=== PATIENT | male | born 1970 | race African-American/Black ===

== ENCOUNTER 2017-04-07 21:04 | Emergency (ER) | payer BC ==
[~2017-04-07] VITALS: Ht 170.2 cm; Wt 76.0 kg
[~2017-04-07 21:04] MED LIST: DULO20CA45 PO
[2017-04-07 22:19] VITALS: BP 118/75
== END 2017-04-07 22:20 | disposition home or self-care (01) ==
LOC: ED 21:49
DX: L03.90 Cellulitis, unspecified (principal); S50.862A Insect bite (nonvenomous) of left forearm, initial encounter; T63.461A Toxic effect of venom of wasps, accidental (unintentional), initial encounter; Y93.89 Activity, other specified; Y99.8 Other external cause status; Y92.89 Other specified places as the place of occurrence of the external cause
CPT/HCPCS: 93005; 99283; J7512

== ENCOUNTER 2017-05-03 18:16 | Emergency (ER) | payer BC ==
[~2017-05-03] VITALS: Ht 170.2 cm; Wt 81.7 kg
[2017-05-03 18:30] VITALS: BP 137/84
[2017-05-03] MEDS ORDERED: HYDROmorphone 1 MG/ML, 1ML IM STA (18:58)
[2017-05-03] MEDS ORDERED: HYDROcodone/APAP 10/325 MG TABLET PO ONE (19:00)
[2017-05-03] MEDS ORDERED: HYDROmorphone 1 MG/ML, 1ML ONE (19:10)
== END 2017-05-03 19:33 | disposition home or self-care (01) ==
LOC: ED 19:15
DX: K02.9 Dental caries, unspecified (principal); Z87.891 Personal history of nicotine dependence
CPT/HCPCS: 96372; 99283; J1170

== ENCOUNTER 2020-07-16 16:56 | Inpatient (IN) | payer BC, OTHER ==
[~2020-07-16] VITALS: Ht 170.2 cm; Wt 87.5 kg
--- NOTE | 2020-07-16 17:06 | NUR ---
PT BIB EMS FOR LUQ ABD PAIN THAT RAIDATES TO HIS BACK. PT STATES "IT JUST CAME ON ALL OF A SUDDEN, I DIDNT HEAR A POP OR ANYTHING. ORIGNALLY I THOUGHT IT WAS MY CHEST" PT RECEIVED [employer] AND [employer]. PT CONNECTED TO MONITORING EQUIPMENT. IS BEDISDE.
[2020-07-16] MEDS ORDERED: MORPHINE SULFATE 4 MG/ML, 1ML ONE ×2 (17:17→19:50)
[2020-07-16] MEDS ORDERED: ONDANSETRON 2MG/ML, 2ML ONE (17:17)
[2020-07-16] MEDS: MORPHINE SULFATE 4 MG/ML, 1ML IVPush PRN ×2 (17:20→19:53)
[2020-07-16] MEDS ORDERED: ONDANSETRON 2MG/ML, 2ML IVPush ONE (17:30)
--- NOTE | 2020-07-16 17:30 | NUR ---
TASK RN: PT MEDICATED PER EMAR FOR PAIN. IMMEDIATE IMPROVEMENT IN PAIN. PT RESTING COMFORTABLY, REQUIRING SUPPLEMENTAL O2 TO MAINTAIN SPO2 >90%. RR WNL.
[2020-07-16 17:33] LABS: BASOPHILS % (AUTO) 0 % (0-1); EOSINOPHILS % (AUTO) 0 % (1-7); LYMPHOCYTES % (AUTO) 12 % (22-44); MEAN CORPUSCULAR HGB CONC 33.7 g/dL (33.2-36.2); MEAN PLATELET VOLUME 7.9 fL (7.4-10.4); MONOCYTES % (AUTO) 7 % (2-9); NEUTROPHILS % (AUTO) 81 % (42-75); PLATELET COUNT 210 x10^3/uL (130-400); RED BLOOD COUNT 6.54 x10^6/uL (4.38-5.82); RED CELL DISTRIBUTION WIDTH 15.1 % (9.4-14.8)
[2020-07-16 17:35] LABS: MD NO
[2020-07-16 17:43] LABS: ALANINE AMINOTRANSFERASE 38 U/L (12-78); ANION GAP 6 mmol/L (5-15); CALCIUM 8.9 mg/dL (8.5-10.1); CHLORIDE 111 mmol/L (98-107); CREATININE 1.23 mg/dL (0.7-1.3)
[2020-07-16 17:47] LABS: ALKALINE PHOSPHATASE 87 U/L (45-117); BILIRUBIN,TOTAL 0.5 mg/dL (0.2-1.0); TOTAL PROTEIN 7.3 g/dL (6.4-8.2); TROPONIN I < 0.015 ng/mL (0.000-0.045)
[2020-07-16 17:54] LABS: MICROSCOPIC NOT IND
[2020-07-16] MEDS ORDERED: OMNIPAQUE 350 MG/ML, 100ML BOTTLE ONE (18:24)
--- NOTE | 2020-07-16 18:46 | NUR ---
BEDSIDE REPORT RECEIVED FROM [facility]
[2020-07-16] MEDS ORDERED: SODIUM CHLORIDE 0.9% 1,000ML IVBOLUS ONE (19:00)
[2020-07-16] MEDS ORDERED: SODIUM CHLORIDE FLUSH 10ML SYR IVF ONE (19:00)
--- NOTE | 2020-07-16 19:01 | NUR ---
PT SITTING UPRIGHT ON GUASHISH, AMINAH, VSS. AT BEDSIDE. PT REPORTS DECREASED PAIN. NO NEEDS AT THIS TIME. CALL LIGHT AND PERSONAL BELONGINGS WITHIN REACH.
[2020-07-16] MEDS ORDERED: LACTATED RINGERS 1,000 ML IVBOLUS ONE (19:30)
[2020-07-16] MEDS ORDERED: LACTATED RINGERS 1,000 ML IV SCH (19:30)
--- NOTE | 2020-07-16 19:51 | NUR ---
PT C/O INCREASED PAIN AND REQUESTS PAIN MEDICATION. MEDICATED PER EMAR.
--- NOTE | 2020-07-16 20:54 | NUR ---
Pt to be admitted to [facility], room 349. Report called to
[2020-07-16 21:47] VITALS: BP 125/81
[2020-07-16] MEDS ORDERED: BISACODYL 10 MG SUPP PR PRN (22:30)
[2020-07-16] MEDS ORDERED: LIDODERM 5% PATCH TD PRN (22:30)
[2020-07-16] MEDS ORDERED: MELATONIN 5 MG TABLET PO PRN (22:30)
[2020-07-16] MEDS ORDERED: LABETALOL 5MG/ML, 20ML IVPush PRN (22:30)
[2020-07-16] MEDS ORDERED: ACETAMINOPHEN 325 MG TABLET PO PRN (22:30)
[2020-07-16] MEDS: morphine SULFATE 10 MG/ML, 1ML IVPush PRN (22:54)
[2020-07-16] MEDS: LACTATED RINGERS 1,000 ML IV SCH (22:54)
[2020-07-16] MEDS ORDERED: TAMS-11 PO (23:54)
[2020-07-17 00:40] VITALS: BP 125/68
[2020-07-17] MEDS: morphine SULFATE 10 MG/ML, 1ML IVPush PRN ×5 (02:21→20:31)
[2020-07-17] MEDS: LACTATED RINGERS 1,000 ML IV SCH ×3 (05:33→20:26)
[2020-07-17] MEDS: ONDANSETRON 2MG/ML, 2ML IVPush PRN ×2 (05:45→16:31)
[2020-07-17 06:07] LABS: BASOPHILS % (AUTO) 0 % (0-1); EOSINOPHILS % (AUTO) 0 % (1-7); LYMPHOCYTES % (AUTO) 10 % (22-44); MEAN CORPUSCULAR HEMOGLOBIN 27.6 pg (27.5-34.5); MEAN CORPUSCULAR HGB CONC 34.2 g/dL (33.2-36.2); MEAN PLATELET VOLUME 8.1 fL (7.4-10.4); MONOCYTES % (AUTO) 7 % (2-9); NEUTROPHILS % (AUTO) 83 % (42-75); PLATELET COUNT 203 x10^3/uL (130-400); RED BLOOD COUNT 6.53 x10^6/uL (4.38-5.82); RED CELL DISTRIBUTION WIDTH 15.3 % (9.4-14.8)
[2020-07-17 06:08] LABS: MD NO
[2020-07-17 06:16] VITALS: BP 167/103
[2020-07-17 06:20] LABS: CHLORIDE 107 mmol/L (98-107)
[2020-07-17] MEDS: KETOROLAC 30 MG/1 ML IV PRN ×3 (06:31→21:17)
[2020-07-17 06:34] LABS: ALANINE AMINOTRANSFERASE 30 U/L (12-78); ALBUMIN 3.6 g/dL (3.4-5.0); ALKALINE PHOSPHATASE 88 U/L (45-117); ANION GAP 4 mmol/L (5-15); BILIRUBIN,TOTAL 0.7 mg/dL (0.2-1.0); CALCIUM 8.5 mg/dL (8.5-10.1); CHOL/HDL RATIO 2.6; CHOLESTEROL, TOTAL 146 mg/dL (140-239); CREATININE 1.07 mg/dL (0.7-1.3); HDL CHOL % 39 % (26-37); HDL CHOLESTEROL (DIRECT) 57 mg/dL (40-60); LDL CHOLESTEROL,CALCULATED 79 mg/dL (54-169); LDL/HDL RATIO 1.4 (0.5-3.0); TOTAL PROTEIN 6.9 g/dL (6.4-8.2); TRIGLYCERIDES 50 mg/dL (50-200); VLDL CHOLESTEROL 10 mg/dL (0-25)
[2020-07-17] MEDS ORDERED: TAMSULOSIN 0.4 MG CAP.ER.24H PO SCH (09:00)
[2020-07-17 14:08] VITALS: BP 153/98
[2020-07-17 18:15] VITALS: BP 155/94
[2020-07-17] MEDS: ENOXAPARIN 40 MG/0.4 ML SQ SCH (20:00)
[2020-07-17 20:19] VITALS: BP 142/80
[2020-07-18 02:09] VITALS: BP 130/86
[2020-07-18] MEDS: LACTATED RINGERS 1,000 ML IV SCH ×2 (02:46→11:09)
[2020-07-18 05:12] LABS: BASOPHILS % (AUTO) 0 % (0-1); EOSINOPHILS % (AUTO) 1 % (1-7); LYMPHOCYTES % (AUTO) 7 % (22-44); MEAN CORPUSCULAR HEMOGLOBIN 27.5 pg (27.5-34.5); MEAN CORPUSCULAR HGB CONC 34.7 g/dL (33.2-36.2); MEAN PLATELET VOLUME 8.6 fL (7.4-10.4); MONOCYTES % (AUTO) 8 % (2-9); NEUTROPHILS % (AUTO) 84 % (42-75); PLATELET COUNT 194 x10^3/uL (130-400); RED BLOOD COUNT 6.56 x10^6/uL (4.38-5.82); RED CELL DISTRIBUTION WIDTH 15.1 % (9.4-14.8)
[2020-07-18 05:14] LABS: MD NO
[2020-07-18 05:21] LABS: ALANINE AMINOTRANSFERASE 23 U/L (12-78); ALBUMIN 3.3 g/dL (3.4-5.0); ANION GAP 4 mmol/L (5-15); CALCIUM 8.6 mg/dL (8.5-10.1); CHLORIDE 104 mmol/L (98-107); CREATININE 1.07 mg/dL (0.7-1.3)
[2020-07-18 05:24] LABS: ALKALINE PHOSPHATASE 86 U/L (45-117); TOTAL PROTEIN 6.8 g/dL (6.4-8.2)
[2020-07-18 07:03] VITALS: BP 138/92
[2020-07-18] MEDS: morphine SULFATE 10 MG/ML, 1ML IVPush PRN (07:50)
[2020-07-18] MEDS ORDERED: HYDR-3241 PO ×4 (14:29→15:00)
[2020-07-18] MEDS ORDERED: ONDA4TAB7 PO (14:29)
[2020-07-18 14:58] VITALS: BP 169/99
== END 2020-07-18 17:33 | disposition home or self-care (01) | DRG 440 ==
LOC: ED 17:31 → EDIP 19:53 → 3N 21:49
PROVIDERS: ADMIT Family Medicine; ATTEND Internal Medicine
DX: K85.20 Alcohol induced acute pancreatitis without necrosis or infection (principal); F12.90 Cannabis use, unspecified, uncomplicated; N40.0 Benign prostatic hyperplasia without lower urinary tract symptoms; G62.9 Polyneuropathy, unspecified; Z82.3 Family history of stroke; Z82.49 Family history of ischemic heart disease and other diseases of the circulatory system; Z83.3 Family history of diabetes mellitus; Z87.891 Personal history of nicotine dependence; Z88.8 Allergy status to other drugs, medicaments and biological substances
CPT/HCPCS: 36415; 71275; 74175; 74177; 76705; 80053; 80061; 80320; 81003; 83036; 83690; 83735; 84100; 84443; 84484; 85025; 93005; 96361; 96374; 96375; 96376; 99285; G0378; J1650; J1885; J2405; Q9967; G0480; J2270; J7030; J7120

== ENCOUNTER → 2020-08-25 | Outpatient (CLI) | payer OTHER ==
[~2020-08-25] MED LIST changes: +HYDR-3241 PO; +ONDA4TAB7 PO; +SECRETIN 16 MCG ONE; +TAMS-11 PO
== END | disposition home or self-care (01) ==
LOC: RAD 09:27
PROVIDERS: ATTEND Internal Medicine Gastroenterology
DX: N28.1 Cyst of kidney, acquired (principal); K85.20 Alcohol induced acute pancreatitis without necrosis or infection; R93.5 Abnormal findings on diagnostic imaging of other abdominal regions, including retroperitoneum; K21.9 Gastro-esophageal reflux disease without esophagitis; K57.30 Diverticulosis of large intestine without perforation or abscess without bleeding
CPT/HCPCS: 74181; J2850

== ENCOUNTER 2020-10-16 06:36 | Day surgery (SDC) | payer OTHER ==
[~2020-10-16] VITALS: Ht 170.2 cm; Wt 82.9 kg
[~2020-10-16 06:36] MED LIST changes: -SECRETIN 16 MCG ONE
[2020-10-16] MEDS ORDERED: CHLORHEXIDINE 15 ML UDC MM ONE (07:00)
[2020-10-16] MEDS ORDERED: LACTATED RINGERS 1,000 ML IV SCH (07:00)
[2020-10-16 07:01] VITALS: BP 137/92
[2020-10-16] MEDS ORDERED: OMEP20TA62 PO (07:21)
[2020-10-16] MEDS ORDERED: DICY10CA3 PO (07:21)
[2020-10-16] MEDS ORDERED: PROPOFOL 10 MG/ML, 20ML ONE (07:21)
[2020-10-16] MEDS ORDERED: LIPA1CAP45 PO (07:21)
[2020-10-16] MEDS ORDERED: OMEP-110 PO (07:21)
[2020-10-16] MEDS ORDERED: LIDOCAINE-MPF 2% ,5ML ONE (07:21)
[2020-10-16 07:29] LABS: BASOPHILS % (AUTO) 1 % (0-1); EOSINOPHILS % (AUTO) 4 % (1-7); LYMPHOCYTES % (AUTO) 23 % (22-44); MEAN CORPUSCULAR HEMOGLOBIN 26.7 pg (27.5-34.5); MEAN CORPUSCULAR HGB CONC 33.1 g/dL (33.2-36.2); MEAN PLATELET VOLUME 8.1 fL (7.4-10.4); MONOCYTES % (AUTO) 10 % (2-9); NEUTROPHILS % (AUTO) 62 % (42-75); PLATELET COUNT 211 x10^3/uL (130-400); RED BLOOD COUNT 6.33 x10^6/uL (4.38-5.82); RED CELL DISTRIBUTION WIDTH 15.3 % (9.4-14.8)
[2020-10-16] MEDS ORDERED: OXYcodone 5 MG/5 ML ORAL.SOL UDC PO PRN (07:30)
[2020-10-16] MEDS ORDERED: PROMETHAZINE 25 MG/ML, 1ML IVPush PRN (07:30)
[2020-10-16] MEDS ORDERED: ALBUTEROL SULFATE 2.5 MG/3 ML NPPB PRN (07:30)
[2020-10-16] MEDS ORDERED: FENTANYL PF 100 MCG/2ML IV PRN (07:30)
[2020-10-16] MEDS ORDERED: hydrALAzine 20 MG/ML, 1ML IV PRN (07:30)
[2020-10-16] MEDS ORDERED: LABETALOL 5MG/ML, 20ML IV PRN (07:30)
[2020-10-16 07:36] LABS: ALANINE AMINOTRANSFERASE 41 U/L (12-78); ALBUMIN 3.9 g/dL (3.4-5.0); ANION GAP 3 mmol/L (5-15); CALCIUM 8.6 mg/dL (8.5-10.1); CHLORIDE 112 mmol/L (98-107); CREATININE 1.16 mg/dL (0.7-1.3)
[2020-10-16 07:38] LABS: ALKALINE PHOSPHATASE 75 U/L (45-117); BILIRUBIN,TOTAL 0.4 mg/dL (0.2-1.0); TOTAL PROTEIN 7.2 g/dL (6.4-8.2)
== END 2020-10-16 09:10 | disposition home or self-care (01) ==
LOC: OUT 06:36
PROVIDERS: ATTEND Internal Medicine Gastroenterology
DX: K86.0 Alcohol-induced chronic pancreatitis (principal); K29.50 Unspecified chronic gastritis without bleeding; K21.9 Gastro-esophageal reflux disease without esophagitis; N40.0 Benign prostatic hyperplasia without lower urinary tract symptoms; M72.2 Plantar fascial fibromatosis; F12.10 Cannabis abuse, uncomplicated; Z20.822 Contact with and (suspected) exposure to COVID-19; Z79.891 Long term (current) use of opiate analgesic; Z79.899 Other long term (current) drug therapy; Z87.891 Personal history of nicotine dependence; Z88.8 Allergy status to other drugs, medicaments and biological substances; Z83.71 Family history of colonic polyps; Z80.0 Family history of malignant neoplasm of digestive organs
CPT/HCPCS: 36415; 43239; 43259; 80053; 85025; 87635; 88305; J2704; J7120